=== PATIENT | male | born 1980 | race Caucasian/White ===

== ENCOUNTER 2016-12-08 07:59 | Day surgery (SDC) | payer BC ==
[2016-12-08 10:39] VITALS: BP 135/86; PULSE 64; RESP 18; TEMP 97.4; O2SAT 99
== END 2016-12-08 11:25 | disposition home or self-care (01) ==
LOC: SURG 07:59
PROVIDERS: ATTEND Surgery
DX: K52.9 Noninfective gastroenteritis and colitis, unspecified (principal); K92.1 Melena; K64.4 Residual hemorrhoidal skin tags; K64.8 Other hemorrhoids; K63.5 Polyp of colon
CPT/HCPCS: 43235; 45380; 45385; 99001; J2001; J2704